=== PATIENT | female | born 1955 | race Caucasian/White ===

== ENCOUNTER → 2016-10-14 | Day surgery (SDC) | payer BC ==
[~2016-10-14] MED LIST: ABILIFY10 MG PO; ABILIFY5 MG PO; BUDESONIDE; CATAPRES0.1 MG PO; CELEXA20 MG PO; CLARITIN10 M2 PO; CLEOCIN HCL300 M1 PO; COGENTIN1 M1 PO; COL-RITE50 MG PO; CRANBERRY200 MG PO; CRANBERRY250 MG PO; CRANBERRY500 MG PO; CYMBALTA PO; DESYREL50 MG PO; DULCOLAX10 MG/SUPP RC; DULOXETINE HCL60 MG PO; ELIQUIS5 MG PO; EQL CRANBERRY1 EACH PO; FIBER GUMMIES1 EACH PO; FIBER GUMMIES2 GM PO; FLEET ENEMA133 M1 PR; FLOMAX0.4 M1 PO; FLONASE 0.05% N16 G1; FOLIC ACID PO; FOLIC ACID1 MG PO; HYDROXYZINE HCL25 M1 PO; IBUPROFEN400 MG PO; IRON45 MG PO; LASIX20 MG PO; LEVOTHYROXINE25 MC1 PO; LISINOPRIL10 MG PO; MACROBID100 MG PO; METOPROLOL SUCC25 MG PO; METOPROLOL TART25 MG PO; MILK OF MAGNESIA PO; MIRALAX119 GM PO; MOTRIN400 MG PO; NAMENDA XR7 MG PO; NIFEREX-150 FO150 MG PO; OXCARBAZEPINE150 M1 PO; OXCARBAZEPINE150 M2 PO; OXCARBAZEPINE150 MG PO; PANTOPRAZOLE SO40 MG PO; PRILOSEC20 MG PO; PRINIVIL10 MG PO; PROTONIX PO; SINEMET CR 21 TAB.SA PO; SINEMET CR 25-1 EACH PO; SINEMET CR1 TAB 25/1 PO; SYNTHROID25 MCG PO; TRILEPTAL; TRILEPTAL300 MG PO; VERAMYST10 GM; XARELTO20 MG PO; ZESTRIL10 M1 PO; [UNRECOGNIZED DRUG - OTHER] PO
--- NOTE | ~2016-10-14 | ECT ---
Unit #: [id number] #: [id number] Patient: AYDE KOROMA [id number] [place] [address] [id number] O MR#: [id number] NAME: AYDE KOROMA ROOM: Age: 61 Sex: F Admission Date: 10/14/2016 : 1955 Discharge Date: Attending Physician: Ravi Olvera M.D. Primary Care Physician: Mannie Mcknight M.D. ECT NOTE DATE OF TREATMENT 10/14/2016 TREATMENT NUMBER 47 maintenance. TREATMENT MODALITY Unilateral ECT. ANESTHESIA Glycopyrrolate: 0.2 mg. Brevital: 130 mg Succinylcholine: 100 mg TREATMENT PARAMETERS Charge: 576 millicoulombs Pulse Width: 1.0 milliseconds Frequency: 60 Hertz Duration: 6 seconds Current: 800 milliamps TREATMENT DELIVERED Energy: 113.9 joules Impedance: 238 ohms Charge: 576 millicoulombs SEIZURE MEASURES OMS: 21 seconds EE seconds COMPLICATIONS None. SUMMARY The patient had a good seizure with both OMS and EEG measures. Depression seems to be well maintained with her ECT treatments every 5 weeks. We are going to try to push it out to six weeks for her next ECT and see how she does. DIFFERENTIAL DIAGNOSES AXIS I: F33.2. AXIS II: Deferred. AXIS III: Nothing acute. Unit #: [id number] #: [id number] Patient: AYDE KOROMA AXIS IV: AXIS V: Dictated by... Ravi Olvera M.D. TREVOR/carmen TD: 10/15/2016 12:07 JOB #: [id number] ECT NOTE X Ravi Olvera MD <ELECTRONICALLY SIGNED> 04/08/17 1702 X ECT
== END | disposition home or self-care (01) ==
LOC: CSUR 06:53
DX: F33.2 Major depressive disorder, recurrent severe without psychotic features (principal); I10 Essential (primary) hypertension; E66.9 Obesity, unspecified; K21.9 Gastro-esophageal reflux disease without esophagitis; E03.9 Hypothyroidism, unspecified; Z68.35 Body mass index [BMI] 35.0-35.9, adult; Z87.01 Personal history of pneumonia (recurrent); Z88.0 Allergy status to penicillin; Z88.5 Allergy status to narcotic agent; Z88.8 Allergy status to other drugs, medicaments and biological substances; Z91.040 Latex allergy status; Z79.01 Long term (current) use of anticoagulants; Z79.899 Other long term (current) drug therapy; Z90.710 Acquired absence of both cervix and uterus; Z96.652 Presence of left artificial knee joint; Z98.890 Other specified postprocedural states
CPT/HCPCS: 90870; J0330; J1885; J2405

== ENCOUNTER → 2016-11-25 | Day surgery (SDC) | payer BC ==
--- NOTE | ~2016-11-25 | ECT ---
Unit #: [id number] #: [id number] Patient: AYDE KOROMA [id number] [place] [address] [id number] O MR#: [id number] NAME: AYDE KOROMA ROOM: Age: 61 Sex: F Admission Date: 11/25/2016 : 1955 Discharge Date: Attending Physician: Ravi Olvera M.D. Primary Care Physician: Mannie Mcknight M.D. ECT NOTE DATE OF TREATMENT 11/25/2016 TREATMENT NUMBER 48 maintenance. TREATMENT MODALITY Unilateral ECT. ANESTHESIA Glycopyrrolate: 0.2 mg. Brevital: 130 mg. Succinylcholine: 100 mg. TREATMENT PARAMETERS Charge: 576 millicoulombs Pulse Width: 1.0 milliseconds Frequency: 60 Hertz Duration: 6 seconds Current: 800 milliamps TREATMENT DELIVERED Energy: 110 joules Impedance: 231 ohms Charge: 576 millicoulombs SEIZURE MEASURES OMS: 32 seconds EE seconds COMPLICATIONS None. SUMMARY The patient had a good seizure with both OMS and EEG measures. Her depression seems to be pretty well maintained with her ECT interval at 6 weeks. I will continue her next maintenance ECT at 6 weeks from today. No symptoms are noted on the evaluate today. DIFFERENTIAL DIAGNOSES AXIS I: F33.2 AXIS II: Deferred. Unit #: [id number] #: [id number] Patient: AYDE KOROMA AXIS III: Nothing acute. Dictated by... Ravi Olvera M.D. TREVOR/carmen TD: 11/26/2016 09:43 JOB #: [id number] ECT NOTE Page 1 of 1 X Ravi Olvera MD <ELECTRONICALLY SIGNED> 03/17/17 1207 X ECT
== END | disposition home or self-care (01) ==
LOC: CSUR 06:57
DX: F33.2 Major depressive disorder, recurrent severe without psychotic features (principal); K21.9 Gastro-esophageal reflux disease without esophagitis; I10 Essential (primary) hypertension; E03.9 Hypothyroidism, unspecified; E66.9 Obesity, unspecified; Z79.899 Other long term (current) drug therapy; Z79.01 Long term (current) use of anticoagulants; Z87.01 Personal history of pneumonia (recurrent); Z88.0 Allergy status to penicillin; Z88.5 Allergy status to narcotic agent; Z88.8 Allergy status to other drugs, medicaments and biological substances; Z91.040 Latex allergy status
CPT/HCPCS: 90870; J0330; J1885; J2405

== ENCOUNTER → 2017-01-06 | Day surgery (SDC) | payer BC ==
--- NOTE | ~2017-01-06 | ECT ---
Unit #: [id number] #: [id number] Patient: AYDE KOROMA [id number] [place] [address] [id number] O MR#: [id number] NAME: AYDE KOROMA ROOM: Age: 61 Sex: F Admission Date: 01/06/2017 : 1955 Discharge Date: Attending Physician: Ravi Olvera M.D. Primary Care Physician: Mannie Mcknight M.D. ECT NOTE DATE OF TREATMENT 01/06/2017 TREATMENT NUMBER 49 maintenance TREATMENT MODALITY Unilateral ECT. ANESTHESIA Glycopyrrolate: 0.2 mg Brevital: 80 mg Succinylcholine: 80 mg TREATMENT PARAMETERS Charge: 576 millicoulombs Pulse Width: 1.0 milliseconds Frequency: 60 Hertz Duration: 6 seconds Current: 800 milliamps TREATMENT DELIVERED Energy: 121.7 joules Impedance: 253 ohms Charge: 576 millicoulombs SEIZURE MEASURES OMS: 15 seconds EE seconds COMPLICATIONS None. SUMMARY The patient has been doing well with her maintenance ECT scheduled every six weeks. I will continue her next maintenance ECT in 6 weeks and we will taper out as she tolerates. DIFFERENTIAL DIAGNOSIS [place] I: F33.2. [place] II: Deferred. [place] III: Nothing acute. Unit #: [id number] #: [id number] Patient: AYDE KOROMA Dictated by... Jarret Diaz/virgie TD: 01/07/2017 03:17 JOB #: [id number] ECT NOTE Page 1 of 1 X Ravi Olvera MD <ELECTRONICALLY SIGNED> 03/17/17 1207 X ECT
== END | disposition home or self-care (01) ==
LOC: CSUR 07:08
DX: F33.2 Major depressive disorder, recurrent severe without psychotic features (principal); K21.9 Gastro-esophageal reflux disease without esophagitis; E03.9 Hypothyroidism, unspecified; Z87.440 Personal history of urinary (tract) infections; R32 Unspecified urinary incontinence; Z79.01 Long term (current) use of anticoagulants; E66.9 Obesity, unspecified; Z68.39 Body mass index [BMI] 39.0-39.9, adult; Z87.09 Personal history of other diseases of the respiratory system; Z87.01 Personal history of pneumonia (recurrent); Z90.710 Acquired absence of both cervix and uterus; Z88.6 Allergy status to analgesic agent; Z88.8 Allergy status to other drugs, medicaments and biological substances; Z88.0 Allergy status to penicillin; Z88.5 Allergy status to narcotic agent; Z91.040 Latex allergy status
CPT/HCPCS: 90870; J0330; J1885; J2405

== ENCOUNTER → 2017-02-21 | Day surgery (SDC) | payer BC ==
--- NOTE | ~2017-02-21 | ECT ---
Unit #: [id number] #: [id number] Patient: AYDE KOROMA [id number] [address] [id number] O MR#: [id number] NAME: AYDE KOROMA ROOM: Age: 61 Sex: F Admission Date: 02/21/2017 : 1955 Discharge Date: Attending Physician: Ravi Olvera M.D. Primary Care Physician: Mannie Mcknight M.D. ECT NOTE DATE OF TREATMENT 02/21/2017 TREATMENT NUMBER Fifty (maintenance) TREATMENT MODALITY Unilateral ECT ANESTHESIA Glycopyrrolate: 0.2 mg Brevital: 130 mg Succinylcholine: 100 mg TREATMENT PARAMETERS Charge: 576 millicoulombs Pulse Width: 1.0 milliseconds Frequency: 60 Hertz Duration: 6 seconds Current: 800 milliamps TREATMENT DELIVERED Energy: 119 joules Impedance: 251 ohms Charge: 576 millicoulombs SEIZURE MEASURES OMS: 26 seconds EE seconds COMPLICATIONS None SUMMARY The patient had a good seizure with OMS and EEG measures, her depression is well-controlled with her ECT maintenance at every six weeks. We will see if we can get her connected with another psychiatrist to continue with her maintenance ECT treatments in the next six weeks. DIFFERENTIAL DIAGNOSES AXIS I: F33.2 AXIS II: Deferred. AXIS III: Nothing acute. Unit #: [id number] #: [id number] Patient: AYDE KOROMA AXIS IV: AXIS V: Dictated by... Ravi Olvera M.D. TREVOR/meenu TD: 02/21/2017 09:24 JOB #: [id number] ECT NOTE Page 1 of 1 X Ravi Olvera MD <ELECTRONICALLY SIGNED> 03/17/17 1207 X ECT
== END | disposition home or self-care (01) ==
LOC: CSUR 06:53
DX: F33.2 Major depressive disorder, recurrent severe without psychotic features (principal); K21.9 Gastro-esophageal reflux disease without esophagitis; I10 Essential (primary) hypertension; Z79.899 Other long term (current) drug therapy; E03.9 Hypothyroidism, unspecified; E66.9 Obesity, unspecified; Z87.440 Personal history of urinary (tract) infections; Z87.01 Personal history of pneumonia (recurrent); Z86.711 Personal history of pulmonary embolism; Z90.710 Acquired absence of both cervix and uterus; Z96.652 Presence of left artificial knee joint; Z91.040 Latex allergy status; Z88.8 Allergy status to other drugs, medicaments and biological substances; Z88.0 Allergy status to penicillin; Z88.5 Allergy status to narcotic agent
CPT/HCPCS: 90870; J0330; J1885; J2405

== ENCOUNTER → 2017-03-26 | Day surgery (SDC) | payer BC ==
--- NOTE | ~2017-03-26 | ECT ---
Unit #: [id number] #: [id number] Patient: AYDE KOROMA [id number] [place] [address] [id number] O MR#: [id number] NAME: AYDE KOROMA ROOM: Age: 61 Sex: F Admission Date: 03/26/2017 : 1955 Discharge Date: Attending Physician: Ravi Olvera M.D. Primary Care Physician: Mannie Mcknight M.D. ECT NOTE DATE OF TREATMENT 03/26/2017 TREATMENT NUMBER 51, maintenance TREATMENT MODALITY Unilateral ECT ANESTHESIA Glycopyrrolate: 0.2 mg Brevital: 130 mg Succinylcholine: 100 mg TREATMENT PARAMETERS Charge: 576 millicoulombs Pulse Width: 1.0 milliseconds Frequency: 60 Hertz Duration: 6 seconds Current: 800 milliamps TREATMENT DELIVERED Energy: 130.7 joules Impedance: 276 ohms Charge: 576 millicoulombs SEIZURE MEASURES OMS: 18 seconds EE seconds COMPLICATIONS None. SUMMARY The patient had a good seizure with OMS and EEG measures. Her maintenance ECTs have been doing pretty well at her current interval of 6 weeks. We are going to try to push her out to 8 weeks for her next ECT. She will have those followup maintenance ECTs over at the [facility] and she will continue to follow me in my outpatient clinic. DIFFERENTIAL DIAGNOSES AXIS I: F33.2. AXIS II: Deferred. AXIS III: Nothing acute. Unit #: [id number] #: [id number] Patient: AYDE KOROMA Dictated by.. . Ravi Olvera M.D. Maira/savannah TD: 03/26/2017 21:58 JOB #: [id number] ECT NOTE Page 1 of 1 X Ravi Olvera MD <ELECTRONICALLY SIGNED> 03/31/17 1706 X ECT
== END | disposition home or self-care (01) ==
LOC: CSUR 07:19
DX: F33.2 Major depressive disorder, recurrent severe without psychotic features (principal); E03.9 Hypothyroidism, unspecified; K21.9 Gastro-esophageal reflux disease without esophagitis; I10 Essential (primary) hypertension; Z79.01 Long term (current) use of anticoagulants; Z79.899 Other long term (current) drug therapy; Z87.440 Personal history of urinary (tract) infections; Z86.718 Personal history of other venous thrombosis and embolism; Z86.711 Personal history of pulmonary embolism; Z88.0 Allergy status to penicillin; Z88.5 Allergy status to narcotic agent; Z91.040 Latex allergy status; Z88.8 Allergy status to other drugs, medicaments and biological substances; Z96.652 Presence of left artificial knee joint; Z90.710 Acquired absence of both cervix and uterus; Z98.890 Other specified postprocedural states
CPT/HCPCS: 90870; J0330; J1885; J2405